=== PATIENT | female | born 2000 ===

== ENCOUNTER 2021-07-09 17:54 | Emergency (ER) | payer SELFPAY ==
[~2021-07-09] VITALS: Ht 167.6 cm; Wt 59.0 kg
[2021-07-09 20:06] VITALS: BP 135/77
== END 2021-07-09 20:23 | disposition left against medical advice (07) ==
LOC: ER 17:54
DX: R50.9 Fever, unspecified (principal); R05.9 Cough, unspecified; Z20.822 Contact with and (suspected) exposure to COVID-19; Z53.21 Procedure and treatment not carried out due to patient leaving prior to being seen by health care provider
CPT/HCPCS: 36415; 87426